=== PATIENT | male | born 1960 | race Caucasian/White ===

== ENCOUNTER 2016-07-23 15:27 | Emergency (ER) | payer OTHER ==
[2016-07-23 15:32] VITALS: BP 143/85; BMI 34.9
--- NOTE | 2016-07-23 16:20 | DR.GENAD ---
HPI - PCP Primary Care Physician: DR. IZAGUIRRE - HPI Comment HPI Comment: HISTORY BELOW. - Complaint/Symptoms Chief Complaint Doctors Comments: LEFT ANKLE PAIN AND SWELLING. CHRONIC BUT WORSE TODAY. NOTRAUMA. HISTORY AVACULAR NECROSIS IN THE PAST. HAVE HAD SOME SURGERY ON THAT ANKLE. Chief Complaint:: PATIENT STATED THAT HE IS HAVING SWELLING AND PAIN TO THE LEFT ANKLE. - Nurses notes reviewed Nurses Notes Review: Yes - Source History Provided: Patient - Mode of Arrival Mode of Arrival: Wheelchair - Timing Onset of Chief Complaint: 07/23/16 Came on: Suddenly - Duration Duration: Constant Duration: Days - Severity Severity: Moderate PMH - PMH Past Medical History: Yes Past Medical History: [place] Past Surgical History: Yes Surgical History: Angioplasty/Stents, Cholecystectomy, Ortho Surgery - Family History History of Family Medical Conditions: Yes - Social History Does patient currently use any type of tobacco product: Yes Have you used tobacco products in the last 12 months: Yes Type of Tobacco Use: Cigarettes Does any household member use tobacco: No Alcohol Use: None Do you use any recreational Drugs:: No Lives With: Family Lives Where: Home - infectious screening In the last 2 months have you had wt loss of >10#?: NO Have you had fever, night sweats or hemotysis?: No Have you traveled outside the country in the last 6 months?: No Isolation: Standard ROS - Review of Systems Constitutional: No Symptoms Reported Eyes: No Symptoms Reported ENTM: No Symptoms Reported Respiratoy: No Symptoms Reported Cardiovascular: No Symptoms Reported Gastrointestinal/Abdominal: No Symptoms Reported Genitourinary: No Symptoms Reported Neurological: No Symptoms Reported Musculoskeletal: Left, Ankle Integumentary: Other (SWELLING LEFT ANKLE.) Hematologic/Lymphatic: No Symptoms Reported Endocrine: No Symptoms Reported All Other Systems: Reviewed and Negative PE - Vital Signs Vitals: Pulse Rate 82 Respiratory Rate 20 Blood Pressure 143/85 O2 Sat by Pulse Oximetry 97 - General Limitations: No Limitations General Appearance: Alert - Head Head Exam: Normal Inspection - Eyes Eye exam: Normal Appearance - ENT ENT Exam: Normal External Ear Exam - Neck Neck Exam: Trachea Midline - Chest Chest Inspection: Symmetric Chest Wall Rise - Respiratory Respiratory Exam: Normal Lung Sounds Bilat Respiratory Exam: Bilateral Clear to Auscultation - Cardiovascular Cardiovascular Exam: Regular Rate, Normal Rhythm, Normal Heart Sounds - Extremities Extremities Exam: Tenderness (LEFT ANKLE AND FOOT. PULSES INTACT. ) - Neurologic Neurological Exam: Alert, Oriented X3 - Psychiatric Psychiatric Exam: Normal Affect, Normal Mood - Skin Skin Exam: Erythema MDM - Additional Information Additional Information Obtained From: Family - Differential Diagnosis Differential Diagnosis: ANKLE FRACTURE, ANKLE SPRAIN Course - Treatment Treatment: SEE ORDER. LT ANKLE SPLINT APPLIED IN ED. PRESCRIPTION FOR CRUTCHES GIVEN TO PT IN ED. - Reevaluation 1st: Improved (TYLENOL 3 PO IN ED.) - Education/Counseling Education/Counseling: Patient, Family, Education Educated On: Diagnosis, Needs for Follow Up ROR - XRAY XRAY Interpreted by: Radiologist XRAY Findings: REPORT DISCUSS WITH PATIENT AND FAMILY. - Diagnosis Discharge Problem: Arthritis Ankle pain, left Qualifiers: Chronicity: acute Qualified Code(s): M25.572 - Pain in left ankle and joints of left foot - Discharge Plan Disposition: 01 HOME, SELF-CARE Condition: Stable Prescriptions: Acetaminophen W/ Codeine [Tylenol/Codeine #3 300-30 mg] 1 tab PO Q4-6H PRN #20 tab PRN Reason: Pain - Follow ups/Referrals Follow ups/Referrals: SAURABH IZAGUIRRE [Primary Care Provider] - 3 days - Instructions Instructions: Arthritis, Arthritis, [id number] Additional Instructions: RETURN TO ED IF WORSE.
[2016-07-23] MEDS ORDERED: TYLENOL #3 TAB (W/CODEINE) PO ONE ×2 (16:53→16:56)
--- NOTE | 2016-07-23 16:57 | RAD ---
HISTORY: Ankle pain and swelling Study: 3 views of the left ankle. Comparison: None Findings: There appears to be old fracture of the distal fibula and likely distal tibia. Severe joint space lo ss the ankle joint with subchondral cyst formation and sclerosis. The ankle mortise remains well ali gned. No significant soft tissue swelling or injury can be seen. IMPRESSION: 1. 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 Reported By:
== END 2016-07-23 17:08 | disposition home or self-care (01) ==
LOC: ER 15:27
DX: M19.072 Primary osteoarthritis, left ankle and foot (principal); M25.572 Pain in left ankle and joints of left foot
CPT/HCPCS: 73610; 99282; 99283